=== PATIENT | male | born 1945 | race Caucasian/White ===

== ENCOUNTER 2017-02-05 08:43 | Emergency (ER) | payer MEDICARE ==
[2017-02-05 08:58] VITALS: BP 146/94
--- NOTE | 2017-02-05 09:25 | EDM.PDOC ---
ED HPI RENAL/ - General Chief Complaint: Genitourinary Problem Stated Complaint: CAN'T URINATE/FREQUENT URINATION/FEVER Time Seen by Provider: 02/05/17 09:21 Source: Reports: Patient, Family, RN notes reviewed History Limitations: Reports: No limitations - History of Present Illness INITIAL COMMENTS - FREE TEXT/NARRATIVE: 71-year-old gentleman presents emergency department today with complaint of urinary retention and burning with urination. He was recently in the hospital for triple a repair had Wang catheter placed for 2 days, day of discharge was able to urinate however did describe some difficulty with urination. At this time he is only able to dribble small amounts bladder scan reveals over 500 mL of urine. No other complaints at this time - Related Data Allergies/ADRs: Allergies Allergy/AdvReac Type Severity Reaction Status Date / Time No Known Allergies Allergy Verified 02/05/17 09:02 Home Meds: Home Meds Acetaminophen [Tylenol Arthritis Pain] 650 mg PO BID 11/19/16 [History] Aspirin 81 mg PO DAILY 11/19/16 [History] Multivitamin [Multi-Vitamin Daily] 1 each PO DAILY 11/19/16 [History] Docusate Sodium [Colace] 100 mg PO BID 02/05/17 [History] atorvaSTATin [Lipitor] 80 mg PO BEDTIME 02/05/17 [History] Past Medical History HEENT History: Reports: Impaired vision Cardiovascular History: Reports: Aneurysm, Angina, Bypass, CAD, High cholesterol , Stents Other Cardiovascular History: life vest - defib - Infectious Disease History Infectious Disease History: Reports: C-difficile, Measles, Mumps - Past Surgical History Cardiovascular Surgical History: Reports: AAA repair, Coronary artery bypass, Percutaneous transluminal angioplasty GI Surgical History: Reports: Cholecystectomy, Hernia repair/other Musculoskeletal Surgical History: Reports: Shoulder surgery Social & Family History - Tobacco Use Smoking Status *Q: Former Smoker Used Tobacco, but Quit: Yes Month Tobacco Last Used: 05/24/2016 - Caffeine Use Caffeine Use: Reports: Coffee - Recreational Drug Use Recreational Drug Use: No ED ROS GENERAL - Review of Systems Review Of Systems: See Below Constitutional: Reports: no symptoms Respiratory: Reports: No Symptoms Cardiovascular: Reports: No symptoms GI/Abdominal: Reports: No symptoms : Reports: dysuria, urinary retention ED EXAM, RENAL/ - Physical Exam Exam: See Below Exam Limited By: No limitations General Appearance: alert, WD/WN, no apparent distress Respiratory/Chest: no respiratory distress, lungs clear, normal breath sounds, no accessory muscle use Cardiovascular: regular rate, rhythm, no murmur GI/Abdominal: soft, non tender, no distention Course - Vital Signs Last Recorded V/S: Last Vital Signs Temp 97.8 F 02/05/17 09:00 Pulse 111 H 02/05/17 09:00 Resp 15 02/05/17 09:00 BP 146/94 H 02/05/17 09:00 Pulse Ox 93 L 02/05/17 09:00 - Orders/Labs/Meds Orders: Active Orders 24 hr Category Date Time Status Wang Catheter Insertion [Insert Urinary Catheter] [OM. Care 02/05/17 09:30 Ordered PC] Q24H Urinary Catheter Assessment [RC] ASDIRECTED Care 02/05/17 09:22 Active CULTURE URINE [RM] Urgent Lab 02/05/17 10:15 Uncollected Labs: Laboratory Tests 02/05/17 Range/Units 09:30 Urine Color Yellow Urine Appearance Clear Urine pH 7.0 (4.5-8.0) Ur Specific [place] 1.005 L (1.008-1.030) Urine Protein Negative (NEGATIVE) mg/dL Urine Glucose (UA) Normal (NEGATIVE) mg/dL Urine Ketones Negative (NEGATIVE) mg/dL Urine Occult Blood Negative (NEGATIVE) Urine Nitrite Negative (NEGAITVE) Urine Bilirubin Negative (NEGATIVE) Urine Urobilinogen Normal (NORMAL) mg/dL Ur Leukocyte Esterase Negative (NEGATIVE) Urine RBC 0-5 (0-5) Urine WBC Not seen (0-5) Ur Epithelial Cells Not seen Amorphous Sediment Rare Urine Bacteria Not seen Urine Mucus Rare Departure - Departure Time of Disposition: 10:19 Disposition: Home, Self-Care 01 Condition: good Clinical Impression: Urinary retention Forms: ED Department Discharge Additional Instructions: Keep the urinary catheter in place until reevaluated by your primary care provider next week, call or return to the emergency department with any worsening of symptoms - My Orders Last 24 Hours: My Active Orders 02/05/17 09:22 Urinary Catheter Assessment [RC] ASDIRECTED 02/05/17 09:30 Wang Catheter Insertion [Insert Urinary Catheter] [OM.PC] Q24H 02/05/17 10:15 CULTURE URINE [RM] Urgent - Assessment/Plan Last 24 Hours: My Active Orders 02/05/17 09:22 Urinary Catheter Assessment [RC] ASDIRECTED 02/05/17 09:30 Wang Catheter Insertion [Insert Urinary Catheter] [OM.PC] Q24H 02/05/17 10:15 CULTURE URINE [RM] Urgent Plan: Assessment Acuity = acute Site and laterality = urinary retention complicated in a patient with recent history of AAA repair via endograft Etiology = probably related to recent surgical intervention and catheterization Manifestations = none Location of injury = home Lab values = urinalysis unremarkable urine cultures pending Plan Plan is to keep the catheter in place with a leg bag will have him followup with his primary care provider next week for reevaluation Patient was in agreement with the plan all questions were answered, they were instructed to return to the emergency department or call for worsening symptoms. This note was dictated using [employer] voice recognition software please call with any questions.
== END 2017-02-05 10:45 | disposition home or self-care (01) ==
LOC: JP.ED 08:43
DX: R33.9 Retention of urine, unspecified (principal); I25.10 Atherosclerotic heart disease of native coronary artery without angina pectoris; I20.9 Angina pectoris, unspecified; E78.00 Pure hypercholesterolemia, unspecified; Z95.1 Presence of aortocoronary bypass graft; Z90.49 Acquired absence of other specified parts of digestive tract; Z95.810 Presence of automatic (implantable) cardiac defibrillator; Z98.890 Other specified postprocedural states; Z87.891 Personal history of nicotine dependence; Z79.82 Long term (current) use of aspirin; Z79.899 Other long term (current) drug therapy
CPT/HCPCS: 51702; 81001; 87086; 99282; 99284-25

== ENCOUNTER 2017-07-04 11:00 | Emergency (ER) | payer MEDICARE ==
[2017-07-04 11:33] VITALS: BP 99/62
--- NOTE | 2017-07-04 11:35 | EDM.PDOC ---
ED HPI GENERAL MEDICAL PROBLEM - General Chief Complaint: General Stated Complaint: SHORTNESS OF BREATH WEAK Time Seen by Provider: 07/04/17 11:30 Source of Information: Reports: Patient History Limitations: Reports: No Limitations - History of Present Illness INITIAL COMMENTS - FREE TEXT/NARRATIVE: 72-year-old male who had an ICD surgically implanted into the upper left chest one week ago. He was doing well but over the last 2 days has gotten increasingly weak, he was tachycardic this morning and became short of breath just walking across the house on the level floor. No chest pain, no nausea or vomiting, no diarrhea, no fever. His took his pulse and felt it was rapid so she brought him in the emergency room for evaluation. She felt his pulse was around 130. She was unable to say if it was regular or irregular. He actually felt he was feeling "a lot better" on arrival to the emergency room. He has a recheck appointment in 2 days in [place] with cardiology and the pacemaker clinic. No peripheral edema. Onset: Gradual (Over the past 2 days) Location: Reports: Generalized Severity: Moderate Worsens with: Reports: Other (Walking causes weakness and increased shortness of breath) Associated Symptoms: Reports: Malaise, Shortness of Breath, Weakness. Denies: Confusion, Chest Pain, Cough, Fever/Chills, Headaches, Loss of Appetite, Nausea/ Vomiting - Related Data Allergies Allergy/AdvReac Type Severity Reaction Status Date / Time No Known Allergies Allergy Verified 02/05/17 09:02 Home Meds: Home Meds Acetaminophen [Tylenol Arthritis Pain] 650 mg PO BID 11/19/16 [History] Aspirin 81 mg PO BEDTIME 11/19/16 [History] Multivitamin [Multi-Vitamin Daily] 1 each PO DAILY 11/19/16 [History] Docusate Sodium [Colace] 100 mg PO BID 02/05/17 [History] atorvaSTATin [Lipitor] 80 mg PO BEDTIME 02/05/17 [History] Clopidogrel Bisulfate [Clopidogrel] 75 mg PO DAILY 07/04/17 [History] Nitroglycerin [Nitroglycerin] 0.4 mg SL ASDIRECTED 07/04/17 [History] Past Medical History HEENT History: Reports: Impaired Vision Cardiovascular History: Reports: Bypass, [place], Pacemaker, Stents, Other (See Below ) Other Cardiovascular History: ICD - Infectious Disease History Infectious Disease History: Reports: C-Difficile, Measles, Mumps - Past Surgical History Cardiovascular Surgical History: Reports: AAA Repair, Coronary Artery Bypass, Percutaneous Transluminal Angioplasty GI Surgical History: Reports: Cholecystectomy, Hernia Repair/Other Musculoskeletal Surgical History: Reports: Shoulder Surgery Social & Family History - Tobacco Use Smoking Status *Q: Former Smoker Used Tobacco, but Quit: Yes Month Tobacco Last Used: 05/24/2016 - Caffeine Use Caffeine Use: Reports: Coffee - Recreational Drug Use Recreational Drug Use: No ED ROS GENERAL - Review of Systems Review Of Systems: See Below Constitutional: Denies: Fever, Chills Respiratory: Reports: Shortness of Breath (with activity) Cardiovascular: Denies: Chest Pain GI/Abdominal: Denies: Abdominal Pain, Nausea, Vomiting : Reports: No Symptoms Musculoskeletal: Reports: No Symptoms Skin: Reports: No Symptoms Neurological: Reports: Weakness. Denies: Confusion, Headache, Paresthesia ED EXAM, GENERAL - Physical Exam Exam: See Below Exam Limited By: No Limitations General Appearance: Alert, No Apparent Distress Eye Exam: Bilateral Eye: Normal Inspection Respiratory/Chest: No Respiratory Distress, Lungs Clear Cardiovascular: Regular Rate, Rhythm, Extra Beats (Occasional ectopic beats are heard), Other (Surgical bandages are in place over the upper left chest, there is some underlying swelling but no erythema or redness) GI/Abdominal: Soft, Non-Tender Course - Vital Signs Last Recorded V/S: Last Vital Signs Temp 96.4 F 07/04/17 11:27 Pulse 108 H 07/04/17 11:27 Resp 16 07/04/17 11:27 BP 99/62 07/04/17 11:27 Pulse Ox 98 07/04/17 11:27 Orthostatic Blood Pressure [ 66/45 Supine] Orthostatic Blood Pressure [ 75/53 Standing] Orthostatic Blood Pressure [ 66/46 Sitting] - Re-Assessments/Exams Free Text/Narrative Re-Assessment/Exam: 07/04/17 12:21 Orthostatic blood pressures were obtained and were stable but overall hypotensive. He is not on any blood pressure medications because his blood pressure is so sensitive. Pulse was stable. He stood without symptoms. He was kept on a cardiac cath rn for almost an hour and maintained sinus rhythm with a rate around 85. Dr. Brown, his enamel finisher, was called and informed of the findings and she wanted nothing to add today but will see him in 2 days for his recheck. He will return if he feels worse again. Departure - Departure Time of Disposition: 12:36 Disposition: Home, Self-Care 01 Condition: Good Clinical Impression: Heart palpitations, Exertional dyspnea - Discharge Information Instructions: Palpitations, [id number] Referrals: Leonardo Baird MD [Primary Care Provider] - Forms: ED Department Discharge Care Plan Goals: Rest, activity as tolerated and recheck in 2 days as scheduled. No medication changes. Return anytime sooner if worsening such as chest pain or shortness of breath at rest.
== END 2017-07-04 12:36 | disposition home or self-care (01) ==
LOC: JP.ED 11:00
DX: R00.2 Palpitations (principal); R06.00 Dyspnea, unspecified; I25.2 Old myocardial infarction; Z95.0 Presence of cardiac pacemaker; Z95.5 Presence of coronary angioplasty implant and graft; Z98.890 Other specified postprocedural states; Z95.1 Presence of aortocoronary bypass graft; Z87.891 Personal history of nicotine dependence; Z79.82 Long term (current) use of aspirin; Z79.899 Other long term (current) drug therapy
CPT/HCPCS: 99284; 99285

== ENCOUNTER 2024-10-18 17:07 | Observation (INO) | payer MEDICARE ==
[2024-10-18 18:01] LABS: BASOPHILS ABSOLUTE AUTO 0.05 K/uL (0.00-0.10); BASOPHILS PERCENT AUTO 0.9 % (0.1-1.3); EOSINOPHILS ABSOLUTE AUTO 0.36 K/uL (0.00-0.40); EOSINOPHILS PERCENT AUTO 6.2 % (0.0-5.4); HEMATOCRIT 35.5 % (38.4-49.7); HEMOGLOBIN 11.5 g/dL (12.9-16.9); IMMATURE GRAN PERCENT AUTO 0.3 % (0.0-0.7); LYMPHOCYTES ABSOLUTE AUTO 1.61 K/uL (0.8-3.3); LYMPHOCYTES PERCENT AUTO 27.8 % (11.4-47.7); MEAN CORPUSCULAR HEMOGLOBIN 30.9 pg (31.6-35.5); MEAN CORPUSCULAR HGB CONC 32.4 g/dL (31.6-35.5); MEAN CORPUSCULAR VOLUME 95.4 fL (81.4-99.0); MONOCYTES PERCENT AUTO 8.6 % (3.3-12.6); NEUTROPHILS ABSOLUTE AUTO 3.26 K/uL (1.0-7.6); NEUTROPHILS PERCENT AUTO 56.2 % (40.0-78.1); PLATELET COUNT,PLT 191 K/uL (130-375); RED BLOOD CELL COUNT 3.72 M/uL (4.14-5.76); WHITE BLOOD CELL COUNT,WBC 5.8 K/uL (3.2-11.0)
[2024-10-18 18:02] LABS: IMMATURE GRAN ABSOLUTE AUTO 0.02 K/uL (0.00-0.23)
[2024-10-18 18:29] LABS: ANION GAP 8.4 mmol/L (5.0-14.0); BLOOD UREA NITROGEN,BUN 22 mg/dL (7-18); CALCIUM 8.8 mg/dL (8.5-10.1); CARBON DIOXIDE,CO2 27 mmol/L (21-32); CHLORIDE,CL 106 mmol/L (100-108); CREATININE 1.3 mg/dL (0.8-1.3); ESTIMATED GFR 56 mL/min (>60); GLUCOSE RANDOM 90 mg/dL (74-106); POTASSIUM,K 4.2 mmol/L (3.6-5.2); PRO B-TYPE NATRIUR PEPT,BNPPRO 3751 pg/mL (5-450); SODIUM,NA 141 mmol/L (140-148)
[2024-10-18] MEDS: Furosemide 20 MG/2 ML VIAL IVPUSH ONE (20:31)
[2024-10-18] MEDS: Sodium Chloride 0.9% 10 ML Syringe FLUSH PRN (20:31)
[2024-10-18] MEDS ORDERED: Melatonin 3 MG Tab PO PRN (20:36)
[2024-10-18] MEDS ORDERED: Sennosides/Docusate Sodium 50-8.6 MG Tab PO PRN (20:36)
[2024-10-18] MEDS ORDERED: Ondansetron 4 MG Tab.DIS PO PRN (20:36)
[2024-10-18] MEDS ORDERED: Magnesium Hydroxide 400 MG/5 ML Susp 30 ML Cup PO PRN (20:36)
[2024-10-18] MEDS ORDERED: Acetaminophen 325 MG Tab PO PRN (20:36)
[2024-10-18] MEDS ORDERED: Ondansetron 4 MG/2 ML SDV IV PRN (20:36)
[2024-10-19 05:50] LABS: HEMATOCRIT 35.6 % (38.4-49.7); HEMOGLOBIN 11.8 g/dL (12.9-16.9); MEAN CORPUSCULAR HGB CONC 33.1 g/dL (31.6-35.5); MEAN CORPUSCULAR VOLUME 93.4 fL (81.4-99.0); RED BLOOD CELL COUNT 3.81 M/uL (4.14-5.76); WHITE BLOOD CELL COUNT,WBC 6.5 K/uL (3.2-11.0)
[2024-10-19 06:04] LABS: ANION GAP 9.3 mmol/L (5.0-14.0); CALCIUM 8.7 mg/dL (8.5-10.1); CREATININE 1.3 mg/dL (0.8-1.3); EST CRCL DRUG DOSING (CG) 46.83 mL/min
[2024-10-19] MEDS: Docusate Sodium 100 MG Cap PO SCH (08:43)
[2024-10-19] MEDS: Ferrous Sulfate 325 MG Tab PO SCH (08:43)
[2024-10-19 10:19] VITALS: BP 97/67; PULSE 84
[2024-10-19] MEDS ORDERED: atorvaSTATin 20 MG Tab PO SCH (21:00)
[2024-10-19] MEDS ORDERED: Aspirin 81 MG Tab.Chew PO SCH (21:00)
== END 2024-10-19 10:25 | disposition home or self-care (01) ==
LOC: JP.ED 17:07 → JP.MS 19:45
PROVIDERS: ADMIT Registered Nurse; ATTEND Internal Medicine
DX: I50.23 Acute on chronic systolic (congestive) heart failure (principal); I25.10 Atherosclerotic heart disease of native coronary artery without angina pectoris; I25.2 Old myocardial infarction; Z95.5 Presence of coronary angioplasty implant and graft; Z79.82 Long term (current) use of aspirin; Z79.899 Other long term (current) drug therapy
CPT/HCPCS: 36415; 71046; 80048; 83880; 85025; 85027; J1940; 96374; 99222; 99238; G0378

== ENCOUNTER 2024-11-02 13:12 | Emergency (ER) | payer MEDICARE ==
[2024-11-02 13:58] LABS: HEMATOCRIT 36.7 % (38.4-49.7); HEMOGLOBIN 11.9 g/dL (12.9-16.9); MEAN CORPUSCULAR HEMOGLOBIN 31.5 pg (31.6-35.5); MEAN CORPUSCULAR HGB CONC 32.4 g/dL (31.6-35.5); MEAN CORPUSCULAR VOLUME 97.1 fL (81.4-99.0); RED BLOOD CELL COUNT 3.78 M/uL (4.14-5.76); WHITE BLOOD CELL COUNT,WBC 5.9 K/uL (3.2-11.0)
[2024-11-02 13:59] LABS: BASOPHILS ABSOLUTE AUTO 0.06 K/uL (0.00-0.10); EOSINOPHILS ABSOLUTE AUTO 0.32 K/uL (0.00-0.40); EOSINOPHILS PERCENT AUTO 5.4 % (0.0-5.4); IMMATURE GRAN PERCENT AUTO 0.3 % (0.0-0.7); LYMPHOCYTES PERCENT AUTO 26.9 % (11.4-47.7); MONOCYTES ABSOLUTE AUTO 0.55 K/uL (0.20-0.90); MONOCYTES PERCENT AUTO 9.3 % (3.3-12.6); NEUTROPHILS ABSOLUTE AUTO 3.39 K/uL (1.0-7.6); NEUTROPHILS PERCENT AUTO 57.1 % (40.0-78.1); PLATELET COUNT,PLT 163 K/uL (130-375)
[2024-11-02 14:00] LABS: IMMATURE GRAN ABSOLUTE AUTO 0.02 K/uL (0.00-0.23)
[2024-11-02 14:29] LABS: A/G RATIO 1.1 (1.2-2.2); ALANINE AMINOTRANSFERASE,ALT 19 U/L (12-78); ALBUMIN 3.6 g/dL (3.4-5.0); ALKALINE PHOSPHATASE 81 U/L (46-116); ANION GAP 12.7 mmol/L (5.0-14.0); ASPARTATE AMNIOTRANSFERASE,AST 23 U/L (15-37); BILIRUBIN TOTAL 0.9 mg/dL (0.2-1.0); BLOOD UREA NITROGEN,BUN 26 mg/dL (7-18); CALCIUM 8.5 mg/dL (8.5-10.1); CARBON DIOXIDE,CO2 24 mmol/L (21-32); CHLORIDE,CL 105 mmol/L (100-108); CREATININE 1.4 mg/dL (0.8-1.3); ESTIMATED GFR 51 mL/min (>60); GLUCOSE RANDOM 85 mg/dL (74-106); POTASSIUM,K 4.5 mmol/L (3.6-5.2); PROTEIN TOTAL,TP 6.8 g/dL (6.4-8.2); SODIUM,NA 142 mmol/L (140-148)
[2024-11-02] MEDS: fentaNYL 50 MCG/ML SDV IVPUSH ONE (15:10)
[2024-11-02 17:41] VITALS: BP 106/75; PULSE 92
== END 2024-11-02 18:06 ==
LOC: JP.ED 13:12
DX: I51.4 Myocarditis, unspecified (principal); I50.23 Acute on chronic systolic (congestive) heart failure; I25.2 Old myocardial infarction; Z90.49 Acquired absence of other specified parts of digestive tract; Z95.5 Presence of coronary angioplasty implant and graft; Z79.82 Long term (current) use of aspirin; Z79.899 Other long term (current) drug therapy
CPT/HCPCS: 36415; 71046; 80053; 84484; 85025; 93005; 96374; 99285; J3010

== ENCOUNTER 2025-01-16 06:24 | Day surgery (SDC) | payer MEDICARE ==
[2025-01-16 07:04] LABS: HEMATOCRIT 40.6 % (38.4-49.7); HEMOGLOBIN 13.4 g/dL (12.9-16.9); MEAN CORPUSCULAR HEMOGLOBIN 31.3 pg (31.6-35.5); MEAN CORPUSCULAR VOLUME 94.9 fL (81.4-99.0); RED BLOOD CELL COUNT 4.28 M/uL (4.14-5.76); WHITE BLOOD CELL COUNT,WBC 6.7 K/uL (3.2-11.0)
[2025-01-16] MEDS ORDERED: fentaNYL 250 MCG/5 ML SDV ONE (07:24)
[2025-01-16 07:25] LABS: ALANINE AMINOTRANSFERASE,ALT 20 U/L (12-78); ALBUMIN 3.6 g/dL (3.4-5.0); ALKALINE PHOSPHATASE 107 U/L (46-116); ANION GAP 12.4 mmol/L (5.0-14.0); ASPARTATE AMNIOTRANSFERASE,AST 24 U/L (15-37); BILIRUBIN TOTAL 0.7 mg/dL (0.2-1.0); BLOOD UREA NITROGEN,BUN 18 mg/dL (7-18); CALCIUM 9.2 mg/dL (8.5-10.1); CARBON DIOXIDE,CO2 25 mmol/L (21-32); CHLORIDE,CL 106 mmol/L (100-108); CREATININE 1.2 mg/dL (0.8-1.3); EST CRCL DRUG DOSING (CG) 50.73 mL/min; ESTIMATED GFR 62 mL/min (>60); GLUCOSE RANDOM 94 mg/dL (74-106); POTASSIUM,K 4.3 mmol/L (3.6-5.2); PROTEIN TOTAL,TP 7.1 g/dL (6.4-8.2); SODIUM,NA 143 mmol/L (140-148)
[2025-01-16] MEDS ORDERED: Ondansetron 4 MG/2 ML SDV ONE (07:25)
[2025-01-16] MEDS ORDERED: Neostigmine Methylsulfate 10 MG/10 ML MDV ONE (07:25)
[2025-01-16] MEDS ORDERED: Glycopyrrolate 0.2 MG/ML 5 ML MDV ONE (07:25)
[2025-01-16] MEDS ORDERED: Dexamethasone 4 MG/ML SDV ONE (07:25)
[2025-01-16] MEDS ORDERED: Etomidate 2 MG/ML 10 ML SDV ONE (07:25)
[2025-01-16] MEDS ORDERED: Rocuronium 50 MG/5 ML Vial ONE (07:25)
[2025-01-16] MEDS ORDERED: Succinylcholine 200 MG/10 ML MDV ONE (07:25)
[2025-01-16] MEDS: Sodium Chloride 0.9% 1,000 ML IV SCH (07:27)
[2025-01-16] MEDS: metroNIDAZOLE/Normal Saline 500 MG in Premix Bag 1 BAG IV ONE (07:31)
[2025-01-16] MEDS: ceFAZolin 2 GM in Premix Bag 1 BAG IV ONE (08:31)
[2025-01-16] MEDS: Ropivacaine 36 ML, dexAMETHasone 8 MG, EPINEPHrine 0.4 MG, Sodium Chloride 0.9% 41.6 ML NERVRT SCH (08:44)
[2025-01-16] MEDS: Bupivacaine 0.5%/EPINEPHrine 1:200,000 50 ML MDV ONE (08:48)
[2025-01-16] MEDS ORDERED: Sugammadex Sodium 200 MG/2 ML VIAL IV ONE (09:01)
[2025-01-16 12:51] VITALS: BP 107/62; PULSE 75
== END 2025-01-16 12:45 | disposition home or self-care (01) ==
LOC: JP.SDS 06:24
PROVIDERS: ATTEND Surgery
DX: K40.30 Unilateral inguinal hernia, with obstruction, without gangrene, not specified as recurrent (principal); I25.10 Atherosclerotic heart disease of native coronary artery without angina pectoris; I50.9 Heart failure, unspecified; E78.5 Hyperlipidemia, unspecified; Z95.5 Presence of coronary angioplasty implant and graft; Z88.8 Allergy status to other drugs, medicaments and biological substances; Z79.82 Long term (current) use of aspirin; Z79.899 Other long term (current) drug therapy; R33.9 Retention of urine, unspecified; I25.2 Old myocardial infarction; Z90.49 Acquired absence of other specified parts of digestive tract
CPT/HCPCS: 00840-QZ; 36415; 51702; 80053; 85027; 99283; A9270-GY; C1781; J0171; J0330; J0690; J1100; J1596; J1836; J2405; J2710; J2795; J3010; J3490; J7030

== ENCOUNTER 2025-01-16 20:18 | Emergency (ER) | payer MEDICARE ==
[2025-01-16 20:49] VITALS: BP 137/86; PULSE 101
[2025-01-16] MEDS: Tamsulosin 0.4 MG Cap.ER PO ONE (21:30)
== END 2025-01-16 21:30 | disposition home or self-care (01) ==
LOC: JP.ED 20:18
DX: R33.9 Retention of urine, unspecified (principal); I25.2 Old myocardial infarction; Z95.5 Presence of coronary angioplasty implant and graft; Z90.49 Acquired absence of other specified parts of digestive tract; Z88.8 Allergy status to other drugs, medicaments and biological substances; Z79.82 Long term (current) use of aspirin; Z79.899 Other long term (current) drug therapy
CPT/HCPCS: 51702; 99283; A9270

== ENCOUNTER 2025-07-01 10:18 | Emergency (ER) | payer MEDICARE, OTHER ==
[2025-07-01 10:49] LABS: BASOPHILS ABSOLUTE AUTO 0.06 K/uL (0.00-0.10); BASOPHILS PERCENT AUTO 0.7 % (0.1-1.3); EOSINOPHILS ABSOLUTE AUTO 0.25 K/uL (0.00-0.40); EOSINOPHILS PERCENT AUTO 3.1 % (0.0-5.4); IMMATURE GRAN ABSOLUTE AUTO 0.04 K/uL (0.00-0.23); IMMATURE GRAN PERCENT AUTO 0.5 % (0.0-0.7); LYMPHOCYTES ABSOLUTE AUTO 1.21 K/uL (0.8-3.3); LYMPHOCYTES PERCENT AUTO 15.0 % (11.4-47.7); MONOCYTES ABSOLUTE AUTO 0.67 K/uL (0.20-0.90); MONOCYTES PERCENT AUTO 8.3 % (3.3-12.6); NEUTROPHILS ABSOLUTE AUTO 5.81 K/uL (1.0-7.6); NEUTROPHILS PERCENT AUTO 72.4 % (40.0-78.1); PLATELET COUNT,PLT 214 K/uL (130-375); RED BLOOD CELL COUNT 4.20 M/uL (4.14-5.76); WHITE BLOOD CELL COUNT,WBC 8.0 K/uL (3.2-11.0)
[2025-07-01 11:06] LABS: INR 1.1
[2025-07-01 11:17] LABS: A/G RATIO 1.0 (1.2-2.2); ALANINE AMINOTRANSFERASE,ALT 26 U/L (12-78); ASPARTATE AMNIOTRANSFERASE,AST 28 U/L (15-37); BILIRUBIN TOTAL 1.5 mg/dL (0.2-1.0); BLOOD UREA NITROGEN,BUN 22 mg/dL (7-18); CARBON DIOXIDE,CO2 27 mmol/L (21-32); CHLORIDE,CL 104 mmol/L (100-108); CREATININE 1.2 mg/dL (0.8-1.3); EST CRCL DRUG DOSING (CG) 48.29 mL/min; ESTIMATED GFR 62 mL/min (>60); GLUCOSE RANDOM 108 mg/dL (74-106); POTASSIUM,K 3.9 mmol/L (3.6-5.2); PRO B-TYPE NATRIUR PEPT,BNPPRO 980.0 pg/mL (5-450); PROTEIN TOTAL,TP 7.5 g/dL (6.4-8.2); SODIUM,NA 139 mmol/L (140-148)
[2025-07-01 11:18] LABS: TROPONIN I HIGH SENSITIVITY 456.9 pg/mL (<=60.3)
[2025-07-01] MEDS: Nitroglycerin 2% Oint 1 GM UD Packet TOP ONE (15:22)
[2025-07-02 07:48] LABS: BLOOD UREA NITROGEN,BUN 24.0 mg/dL (7-18); CARBON DIOXIDE,CO2 25.0 mmol/L (21-32); CHLORIDE,CL 106.0 mmol/L (100-108); CREATININE 1.0 mg/dL (0.8-1.3); EST CRCL DRUG DOSING (CG) 57.95 mL/min; ESTIMATED GFR 77.0 mL/min (>60); GLUCOSE RANDOM 87.0 mg/dL (74-106); POTASSIUM,K 4.0 mmol/L (3.6-5.2); PRO B-TYPE NATRIUR PEPT,BNPPRO 880.0 pg/mL (5-450); SODIUM,NA 140.0 mmol/L (140-148)
[2025-07-02 07:50] LABS: TROPONIN I HIGH SENSITIVITY 434.7 pg/mL (<=60.3)
[2025-07-02 15:12] VITALS: BP 125/79; PULSE 78
== END 2025-07-02 15:14 ==
LOC: JP.ED 10:18
DX: R07.89 Other chest pain (principal); I50.9 Heart failure, unspecified; N18.9 Chronic kidney disease, unspecified; I25.2 Old myocardial infarction; Z95.1 Presence of aortocoronary bypass graft; Z79.899 Other long term (current) drug therapy; Z79.82 Long term (current) use of aspirin; Z88.8 Allergy status to other drugs, medicaments and biological substances
CPT/HCPCS: 36415; 71045; 80048; 80053; 83880; 84484; 85025; 85610; 93005; 93010; 96372; 99285; A9270; J1650